=== PATIENT | male | born 1930 | race Caucasian/White ===

== ENCOUNTER 2016-05-20 19:38 | Inpatient (IN) | payer MEDICARE, BC ==
--- NOTE | ~2016-05-20 | CT134 ---
[facility] A Service of [facility] RADIOLOGY TEXT RESULTS PATIENT: ISIAH LOVETT LOCATION: C5B 557-01 : 32 UNIT #: [id number] AGE: [address]: Randolph Enciso MD SEX: M ORDER DR: [id number] [facility] [address] [place], [place] [address] [id number] MR#: [id number] Acc #: [id number] NAME: ISIAH LOVETT : 1930 SEX: M STUDY DATE/TIME: 05/22/2016 10:53 UNIT: [facility] ROOM: [facility] STUDY DESCRIPTION: CT Guide Attending Physician: Randolph Enciso M.D. Ordering Physician: Parvez Thomason M.D. Primary Care Physician: Kourtney Gary M.D. MEDICAL IMAGING REPORT This report is preliminary unless electronic signature is present EXAM CT guided paracentesis INDICATIONS Cirrhosis and ascites. The CT exam was performed with one or more of the following radiation dose reduction techniques: automatic exposure control, adjustment of mA and/or kV according to patient size, and iterative reconstruction. PROCEDURE The risks, benefits and alternatives to the procedure were explained to the patient and signed, informed consent was obtained. The patient was placed supine on the CT scanner gantry. Preliminary CT scan was performed through the region of interest and an appropriate site overlying the patient's right pericolic gutter collection was selected. Overlying skin was marked. The patient was prepped and draped in the usual sterile fashion. Time-out was performed as per protocol. Skin and subcutaneous tissues were anesthetized with buffered lidocaine, anesthesia needle was left in place. Repeat CT scan confirmed appropriate Trajectory of the needle. Subsequently advanced a Futurlinkeh catheter into the fluid with aspiration of serous material. A wire was advanced through the catheter and a 6-Kazakh pigtail catheter was advanced over wire and positioned within the fluid. Catheter was placed to suction drainage. There is evacuation of about 750 mL of serous material. A sample of this fluid will be sent to the lab as requested by the primary team. The patient did receive a total of 1 mg of Versed and 50 mcg fentanyl and continuous monitoring was provided throughout the procedure. IMPRESSION 1. Technically successful CT guided paracentesis as noted above. CT was STS. [facility] A Service of [facility] RADIOLOGY TEXT RESULTS PATIENT: ISIAH LOVETT LOCATION: C5B 557-01 : 32 UNIT #: [id number] AGE: [address]: Randolph Enciso MD SEX: M ORDER DR: used during the procedure and permanent images were saved. 2. CT-guided liver biopsy will be dictated separately. Dictated by... Karen Campbell M.D. THIS IS AN ELECTRONICALLY VERIFIED REPORT Karen Campbell M.D. at 05/23/2016 5:57 PM FELIX/abram TD: 05/23/2016 09:51 JOB #: [id number] MEDICAL IMAGING REPORT COPY
--- NOTE | ~2016-05-20 | US6 ---
[facility] A Service of [facility] RADIOLOGY TEXT RESULTS PATIENT: ISIAH LOVETT LOCATION: [facility] : 32 UNIT #: [id number] AGE: [address]: Randolph Enciso MD SEX: M ORDER DR: [id number] [facility] [address] [place], [place] [address] [id number] I MR#: [id number] Acc #: [id number] NAME: ISIAH LOVETT : 1930 SEX: M STUDY DATE/TIME: 05/23/2016 8:27 UNIT: [facility] ROOM: [facility] STUDY DESCRIPTION: US Abdominal Limited Attending Physician: Randolph Enciso M.D. Ordering Physician: Randolph Enciso M.D. Primary Care Physician: Kourtney Gary M.D. MEDICAL IMAGING REPORT This report is preliminary unless electronic signature is present EXAM Right upper quadrant abdominal ultrasound INDICATIONS Generalized abdominal swelling and pain for the past 3 weeks. PROCEDURE Craig-scale and Doppler imaging right upper quadrant of the abdomen COMPARISON 05/20/2016 FINDINGS Visualized portions of pancreas unremarkable. Liver measures 14 cm. No liver mass is seen on submitted images. Ascites in the abdomen. Right kidney measures 13.4 cm. There is a 3.8 cm cyst upper pole right kidney. Common duct measures 5 mm. Previous cholecystectomy. IMPRESSION 1. Ascites throughout the right upper quadrant. 2. Previous cholecystectomy, and a right upper pole renal cyst. Dictated by... Newton Abbasi M.D. THIS IS AN ELECTRONICALLY VERIFIED REPORT Newton Abbasi M.D. at 05/24/2016 7:08 AM SHIREEN/abram TD: 05/23/2016 10:26 JOB #: [id number] [facility] A Service of [facility] RADIOLOGY TEXT RESULTS PATIENT: ISIAH LOVETT LOCATION: [facility] 55 : 32 UNIT #: [id number] AGE: [address]: Randolph Enciso MD SEX: M ORDER DR: MEDICAL IMAGING REPORT COPY
--- NOTE | ~2016-05-20 | OR ---
Unit #: [id number] #: [id number] Patient: ISIAH LOVETT [id number] [address] [place], [place] [address] [id number] I MR#: [id number] NAME: ISIAH LOVETT ROOM: 557 Date of Procedure: 05/22/2016 Admission Date: 05/20/2016 Surgeon: Parvez Thomason M.D. : 1930 Attending Physician: Randolph Enciso M.D. Primary Care Physician: Kourtney Gary M.D. OPERATIVE REPORT PRIMARY CARE PHYSICIAN Kourtney Gary M.D. PREOPERATIVE DIAGNOSES The patient has presented with a history of ascites, status post large volume paracentesis and liver biopsy. Purpose of the endoscopy is to look for any evidence of indirect evidence of liver disease such as portal hypertensive gastropathy or esophageal varices. POSTOPERATIVE DIAGNOSES The patient had mild prepyloric antral gastritis as well as evidence of Parish esophagus. No biopsies were obtained. These have been done in the past. The patient did not have any changes of portal hypertensive gastropathy nor any esophageal varices. RECOMMENDATIONS The patient's liver biopsy was done earlier today. Results of the biopsy along with rest of the findings will be followed up in the office in next 4 to 6 weeks' time. SEDATION USED Procedural sedation. DESCRIPTION OF PROCEDURE Following detailed explanation of the potential risks and complications of an upper endoscopy, namely perforation, bleeding, complication related to sedation, the patient was brought to GI lab and laid in the left lateral decubitus position. Lubricated tip of the Olympus video upper endoscope was passed through bite block into the proximal esophagus under direct vision. The entire esophageal mucosa was examined. The patient was noted to have changes suggestive of Parish esophagus, tongues of columnar mucosa ascending above the gastroesophageal junction. The scope was then advanced into the gastric cavity. The latter was insufflated. Mucosa of the fundus, body, and antrum was examined and [id number] prepyloric antral erosive gastritis noted. No esophagitis or varices was noted and no gastric varices were present, also no changes suggestive of portal hypertensive gastropathy were seen. Pylorus was intubated with visualization of the normal duodenal bulb and second and third part of the duodenum. Upon withdrawal and retroflexion, incisura, cardia, and greater curve were examined and no additional findings noted. The scope was then withdrawn in the distal esophagus. The entire esophageal mucosa was examined all the way up to pharynx. No additional findings noted. The Unit #: [id number] #: [id number] Patient: ISIAH LOVETT patient tolerated the procedure without any postprocedure complications. Dictated by... Glen Johnson/elidia TD: 05/31/2016 20:33 JOB #: [id number] OPERATIVE REPORT X Parvez Thomason MD X PROCEDURE OPERATIVE NOTE
--- NOTE | ~2016-05-20 | CO ---
Unit #: [id number] #: [id number] Patient: ISIAH LOVETT [id number] [facility]. [place], [place] [address] [id number] I MR#: [id number] NAME: ISIAH LOVETT ROOM: 557 Age: 85 Sex: M Admission Date: 05/20/2016 : 1930 Attending Physician: Randolph Enciso M.D. Primary Care Physician: Kourtney Gary M.D. Consultation Date: 05/21/2016 CONSULTATION REPORT PRIMARY CARE PHYSICIAN Kourtney Gary M.D. REASON FOR CONSULTATION The patient with ascites along with anorexia, early satiety, and recurrent ascites. HISTORY OF PRESENT ILLNESS Mr. Lovett is a very pleasant 85-year-old white gentleman. The patient is admitted with anorexia, early satiety, and fullness in the stomach related to large ascites. It is noteworthy that he was seen here in January of last year with history of melena and upper GI bleed, requiring packed cell transfusion. He has had upper endoscopy and a colonoscopy towards that time in the past. This time, he presents with ascites along with abdominal distention from ascites, and also has history of cardiomyopathy and CHF. There is no history of overt GI blood loss this time. He has also history of bloating and according to his , he stopped eating much, and his activity level is also declined. PAST MEDICAL HISTORY Significant for history of cardiomyopathy with CHF; chronic atrial fibrillation; history of COPD; type 2 diabetes; hypertension; hyperlipidemia; benign prostatic hypertrophy; coronary artery disease, status post coronary bypass surgery. PAST SURGICAL HISTORY Included AICD placement and then subsequent removal due to infection, TURP for BPH, coronary artery bypass graft, bilateral herniorrhaphy, tonsillectomy. He has also had abdominal paracentesis in the past. SOCIAL HISTORY The patient never smoked. Drank alcohol. He used to drink alcohol, but only modestly more than 50 years ago. HOME MEDICATIONS Include Tylenol, Lasix, Ocuvite tablets, probiotic, Aldactone, Flomax, aspirin, Protonix, Mastisol, mononitrate. ALLERGIES He is allergic to codeine, Zantac, amoxicillin, and Plavix. FAMILY HISTORY None of colon, pancreatic cancer, or liver disease. Unit #: [id number] #: [id number] Patient: ISIAH LOVETT REVIEW OF SYSTEMS Significant for considerable anorexia and early satiety. There is no history of headache, seizures, chest pain, or syncope. No history of fever, chills, or rigors. There is history of some weight loss, but also the patient has gained an abdominal gas from ascites. No history of cough, expectoration, or hemoptysis. The patient does mention some shortness of breath. No history of dysuria, hematuria, or pyuria. No history of focal seizures or extremity weakness. No history of skin rash, aphthous ulcers in the mouth, or reactive arthritis. PHYSICAL EXAMINATION GENERAL: He is alert and oriented, and appears rundown. VITAL SIGNS: Stable with a temperature of 97.8, pulse is 85 per minute and regular, respiratory rate is 18, and blood pressure is 110/67. He weighs 180 pounds. His baseline weight has varied between 176 to 195 pounds in the past. HEENT: He has mild pallor. Grade 1 to 2 pitting edema. There is no icterus or lymphadenopathy. CARDIOVASCULAR: Reveals normal. LUNGS: On auscultation, lungs reveal bilateral diminished air entry especially at the lung bases. ABDOMEN: The patient does appear to be malnourished, poor muscle with muscle wasting. Examination of the abdomen reveals ascites. There is no area of localized tenderness, rigidity, rebound, or guarding. Liver spleen are not palpable. Bowel sounds normal. DIAGNOSTIC STUDIES LABORATORY RESULTS: Shows normal platelets and albumin level of 3.7. It is also noteworthy that the patient does not have any thrombocytopenia. Hemoglobin is 12 and platelet count is 148. CLINICAL IMPRESSION Although, the patient has ascites and albumin gradient of 1.3. He still seems to have increased albumin in the ascitic fluid. His cytologies in the past have been negative and BNP is low. The etiology of ascites, therefore unclear. I will suggest doing a repeat large volume paracentesis and send ascitic fluid for albumin cell count and cytology again. In addition, we suggest to perform percutaneous ultrasound-guided liver biopsy and medical liver biopsy at the same time to answer the question in relation to cirrhosis. Also obtain PT/INR in the morning before the biopsies done. We will also obtain a consent for an upper endoscopy for indirect evidence of liver disease, such as portal hypertensive gastropathy or varices. The patient in the meantime was advised to take high-protein 2 g sodium diet and Glucerna supplements. Detailed discussion was held with the family regarding the fact that the exact diagnosis and etiology of ascites still uncertain. Thank you very much for asking me to see this very pleasant gentleman. I appreciate the consult. Dictated byGlen Nagel/elidia TD: 05/31/2016 21:17 JOB #: [id number] Unit #: [id number] #: [id number] Patient: ISIAH LOVETT CONSULTATION REPORT X Parvez Thomason MD CONSULTATION REPORT
--- NOTE | ~2016-05-20 | CO ---
Unit #: [id number] #: [id number] Patient: ISIAH LOVETT [id number] [facility]. [place], [place] [address] [id number] I MR#: [id number] NAME: ISIAH LOVETT ROOM: 557 Age: 85 Sex: M Admission Date: 05/20/2016 : 1930 Attending Physician: Randolph Enciso M.D. Primary Care Physician: Kourtney Gary M.D. CONSULTATION REPORT The patient of Dr. Enciso. REASON FOR CONSULTATION Increased creatinine. HISTORY OF PRESENT ILLNESS Mr. Lovett is an 85-year-old male who presented to the hospital with complaint of abdominal swelling. It has actually been going on for a few months of worsening degree. Severity has gotten so bad as to prevent him from eating more than a few bites before he feels bloated and swollen and unable to eat anymore. He has not had vomiting. He has thought to have liver disease. He has had recent 1 L paracentesis without significant improvement. He is on furosemide 40 mg daily and spironolactone 25 mg daily. He is noted to have a creatinine of 1.3. Renal evaluation is requested. He has previously had a history of chronic kidney disease and had an episode of acute kidney injury in 02/2012 with creatinine reaching 2.4 before recovering to approximately 1.4 in 02/2012; it was also 1.4 in 06/2014, 01/2016, and yesterday. He has had a history of bladder outlet issues and has seen Dr. Casillas in the past that was thought secondary to benign prostatic hypertrophy. He has not had increased symptoms of that of late. He denies nonsteroidal use. He has not had dysuria or gross hematuria. He has not had sensation of flank pain. He is not aware of any prior history of stones. PAST MEDICAL HISTORY Notable for congestive heart failure and coronary artery disease; he has not had congestive heart failure symptoms in a long while and in fact breathes more comfortably lying and sitting currently. He has a history of diabetes and hypertension. He has the above-noted history of benign prostatic hypertrophy. He has a recent diagnosis of cirrhosis. SYSTEM REVIEW Five component system review is negative except as noted above that includes no syncope, positive for shortness of breath with exertion, negative for purulent sputum, negative for chest pain, negative for orthopnea, negative for vomiting, but positive for early satiety, negative for sensation of incomplete bladder emptying, negative for bloody bowel movements. SOCIAL HISTORY Includes distant past cigarette smoking history. FAMILY HISTORY Positive for lung cancer. Negative for renal disease. Unit #: [id number] #: [id number] Patient: ISIAH LOVETT PHYSICAL EXAMINATION GENERAL: Reveals a pleasant, confused, elderly male, in no distress at rest, but distinct upon trying to sit, lies back at 20 degrees head elevation with comfort. VITAL SIGNS: Blood pressure is 112/64, heart rate 85, and respirations 24. HEENT: Conjunctivae are pink. There is no bloody nasal discharge. Oral mucous membranes are reasonably moist. NECK: Reveals no thyromegaly. Cervical or supraclavicular adenopathy is not notable. SKIN: Warm and dry with marginal turgor. LUNGS: Reveal moderate air movement. No rales. HEART: Reveals no rub. ABDOMEN: Protuberant with fluid wave. It is nontender. : Includes no CVA tenderness. Bladder distention is not noted, but the exam is difficult for percussion to the presence of probable ascites. EXTREMITIES: Reveal trace pretibial edema. DIAGNOSTIC STUDIES LABORATORY RESULTS: Include a BUN of 26, creatinine 1.3, potassium 4.2, CO2 of 27, calcium 10, and albumin 3.7. White count 6900, hemoglobin 11.6, and platelet count 144,000. Urine yesterday showed negative leukocyte esterase, negative nitrite, negative protein, and negative blood. ASSESSMENT 1. Chronic kidney disease. Renal function is near the lowest level obtained after the prior episode of acute kidney injury in 2011. Uncertain whether there might be some component of reversibility of PPI; we will change to H2 rae and check urine eosinophils. There is no evidence of renal inflammation. As creatinine is stable compared to prior, it will not intervene with any imaging at this point, but we will reconsider the increased creatinine. We would avoid ORLANDO inhibitors in the setting of cirrhosis with portal hypertension. 2. Cirrhosis with portal hypertension. We will discontinue ORLANDO inhibitor. We will increase spironolactone dose and administer along with once daily p.o. furosemide. We will check random urine, sodium, and potassium. We will restrict dietary sodium. 3. Coronary artery disease with history of congestive heart failure. No decompensation at present. No active angina. 4. History of benign prostatic hypertrophy with bladder outlet problems, previously treated by Dr. Casillas. 5. History of diabetes mellitus. 6. History of hypertension. PLAN We will discontinue Protonix, Zestril, and IV fluids. We will start to have dietary sodium restriction. We will add Pepcid. We will check urine eosinophil stain. We will increase spironolactone to 100 mg daily. We will check random urine, sodium, and potassium, re-evaluate with labs and exam in the a.m. Thanks for inviting me to see Mr. Lovett. Dictated by... Isacc Rosado M.D. Unit #: [id number] #: [id number] Patient: ISIAH LOVETT REL/modl TD: 05/22/2016 15:40 JOB #: [id number] CONSULTATION REPORT X Isacc Rosado MD X CONSULTATION REPORT
--- NOTE | ~2016-05-20 | XA60 ---
[facility] A Service of [facility] RADIOLOGY TEXT RESULTS PATIENT: ISIAH LOVETT LOCATION: [facility] 55- : 32 UNIT #: [id number] AGE: [address]: Randolph Enciso MD SEX: M ORDER DR: [id number] [place], [place] [address] [id number] I MR#: [id number] Acc #: [id number] NAME: ISIAH LOVETT : 1930 SEX: M STUDY DATE/TIME: 05/22/2016 10:53 UNIT: [facility] ROOM: [facility] STUDY DESCRIPTION: XA BX Perc Liver Attending Physician: Randolph Enciso M.D. Ordering Physician: Parvez Thomason M.D. Primary Care Physician: Kourtney Gary M.D. MEDICAL IMAGING REPORT This report is preliminary unless electronic signature is present EXAM XA BX perc liver INDICATION Cirrhosis and ascites. FINDINGS Please see CT guide for results. Dictated by... Karen Campbell M.D. THIS IS AN ELECTRONICALLY VERIFIED REPORT Karen Campbell M.D. at 05/23/2016 5:57 PM AFF/ana TD: 05/23/2016 09:56 JOB #: [id number] MEDICAL IMAGING REPORT COPY
--- NOTE | ~2016-05-20 | CO ---
Unit #: [id number] #: [id number] Patient: ISIAH LOVETT [id number] [place], [place] [address] [id number] I MR#: [id number] NAME: ISIAH LOVETT ROOM: 557 Age: 85 Sex: M Admission Date: 05/20/2016 : 1930 Attending Physician: Randolph Enciso M.D. Primary Care Physician: Kourtney Gary M.D. CONSULTATION REPORT ADDENDUM ASSESSMENT 1. Permanent atrial fibrillation. 2. Stable angina. 3. Status post coronary artery bypass grafting and percutaneous coronary intervention and stent. 4. History of myocardial infarction. 5. Ascites. 6. Weight loss. 7. Change in bowel habits. PLAN We will need to rate control his atrial fibrillation. His creatinine is 1.3. We will add a low-dose ORLANDO inhibitor with his low ejection fraction of 40% to 45% and history of coronary artery disease. Also, put him on Coreg 3.125 b.i.d. Check a chest x-ray PA and lateral today and add a BMP to today's labs and a fasting lipid panel. We will obtain records from Dr. Duran's office for Cardiology rule out constrictive pericarditis with a cardiac MRI. We will continue his Lasix and Aldactone and ask Dr. Thomason about the diagnosis and cause of ascites and weight loss. He will possibly need a GI workup. This could be drug related from polypharmacy. In reviewing an old EKG from March 13, 2016, it showed possible atrial fibrillation with occasional ectopic ventricular beats and a right bundle branch block with right axis deviation. Thank you for this consultation. We will continue to follow him through hospitalization. Dictated by... Kelsea Patel APRN for Glen Peguero TD: 05/23/2016 17:18 JOB #: [id number] Unit #: [id number] #: [id number] Patient: ISIAH LOVETT CONSULTATION REPORT X X CONSULTATION REPORT
--- NOTE | ~2016-05-20 | EKG ---
PATIENT: ISIAH LOVETT UNIT #: [id number] Ventricular Rate: 91 BPM Atrial Rate: 88 BPM QRS Duration: 122 ms Q-T Interval: 428 ms QTC Calculation(Bezet): 526 ms Calculated R Carmel: 47 degrees Calculated T Carmel: 46 degrees Diagnosis Line: Atrial fibrillation with occasional PVC's Diagnosis Line: Abnormal ECG Diagnosis Line: When compared with ECG of 14-FEB-2016 12:02, Diagnosis Line: Nonspecific T wave abnormality, improved in Diagnosis Line: Anterior leads Diagnosis Line: Confirmed by NATALY GREENE MD ([id number]) on Diagnosis Line: 05/21/2016 10:47:56 PM INTERPRETING MD: BERRY
--- NOTE | ~2016-05-20 | HP ---
Unit #: [id number] #: [id number] Patient: CASIMIRO LOVETT [id number] [address] [place], [place] [address] [id number] I MR#: [id number] NAME: CASIMIRO LOVETT ROOM: 557 Age: 85 Sex: M Admission Date: 05/20/2016 : 1930 Attending Physician: Randolph Enciso M.D. Primary Care Physician: Kourtney Gary M.D. HISTORY AND PHYSICAL ADMISSION DIAGNOSES 1. It looks decompensated liver cirrhosis with ascites, questionable TOUSSAINT. 2. AFib with episode of AFib with RVR with chronic atrial fibrillation. 3. History of coronary artery disease. 4. History of cardiomyopathy and CHF status post AICD placement and then removal secondary to infection. 5. History of diabetes. 6. Hypertension. 7. history of BPH. 8. History of GI bleed. 9. Questionable CKD. HISTORY OF PRESENT ILLNESS Mr. Casimiro Lovett is an 85-year-old gentleman, patient of Dr. Kourtney Gary, who was brought to the emergency room secondary to abdominal bloating and distension. It looks like the patient had the paracentesis done about a week ago or so. He complains of increasing abdominal bloating and shortness of air and dyspnea with exertion. In the ER, he was noted with episode of AFib with RVR. He was given a dose of Cardizem converted easily to sinus rhythm. He denies any active chest pain. He denies any headache, dizziness, fever, chills, nausea, vomiting or diarrhea. He has noticed his increasing abdominal distension and bloating for the last two or three weeks which, again, progressively was getting worse. His GI doctor is Dr. Parvez Thomason. So, a 12-point review of systems on this patient basically negative except as above. PAST MEDICAL HISTORY History of coronary artery disease status post CABG, history of cardiomyopathy and CHF, history of chronic atrial fibrillation, history of COPD, diabetes, hypertension, dyslipidemia and BPH. PAST SURGICAL HISTORY CABG, AICD placement and then removal secondary to infection, TURP for BPH, bilateral hernia repair, tonsillectomy, multiple EGDs and abdominal paracentesis not to long ago. SOCIAL HISTORY The patient denies any history of tobacco, alcohol or illicit drug use. He was never a heavy drinker and had not drank since about 50 plus years ago. FAMILY HISTORY Unremarkable. Unit #: [id number] #: [id number] Patient: CASIMIRO LOVETT ALLERGIES Zantac, codeine, amoxicillin and Plavix. HOME MEDICATIONS 1. Tylenol. 2. Lasix. 3. Ocuvite tablets. 4. Probiotic. 5. Aldactone. 6. Flomax. 7. Restoril. 8. Protonix. 9. Isosorbide mononitrate. PHYSICAL EXAMINATION GENERAL APPEARANCE: The patient is an 85-year-old gentleman not in acute distress with some icteric sclerae and a little yellow discoloration on the skin. VITAL SIGNS: Blood pressure 120/62. Heart rate 72. Respirations 22. Temperature 97.8. HEENT: Head is atraumatic. Pupils are equal, round and reactive to light. Extraocular muscles intact. Oropharynx clear. NECK: Supple. No mass. No JVD. No bruits. CHEST: Diminished bilaterally. CARDIOVASCULAR: S1, S2. No murmurs. ABDOMEN: Ascitic. Mild fluid waves present. Bowel sounds are distant and diminished. No significant hepatosplenomegaly. EXTREMITIES: Lower extremities without any cyanosis, clubbing or edema. NEUROLOGIC: Patient grossly intact without any focal deficit. DIAGNOSTIC STUDIES LABORATORY: PT, INR and PTT 13.2, 1.2 and 29.3. BUN and creatinine 29 and 1.3. Hemoglobin and hematocrit 11.6 and 36.6, platelets 144, white count 6.9. IMAGING: CT abdomen and pelvis which was done in the ER shows liver cirrhosis without hepatomegaly and abdominal ascites, questionable acute cholecystitis. dependent edema over the pubic area, diverticulosis, increased small bilateral pleural effusions, cardiomegaly with extensive coronary artery disease, multiple bilateral renal lesions which represent simple cysts, pelvic varices. Please disregard acute cholecystitis because the patient had the prior cholecystectomy it looks like. ASSESSMENT AND PLAN 1. Liver cirrhosis with ascites, questionable TOUSSAINT. We will get the hepatis panel, get the right upper quadrant ultrasound, ask Interventional Radiology for abdominal paracentesis and follow up Dr. Thomason's evaluation. 2. Episode of AFib with chronic AFib converted with Cardizem. Cardiology is following. Control rate control. Not a candidate for anticoagulation secondary to previous GI bleed. 3. History of coronary artery disease status post CABG. 4. History of cardiomyopathy and CHF status post AICD and then removal secondary to infection. 5. Diabetes, stable. 6. Hypertension, stable. 7. BPH status post TURP. Unit #: [id number] #: [id number] Patient: CASIMIRO LOVETT 8. Questionable CKD. Follow chemistry closely. May need active diuresis. Therefore, his kidney function may further deteriorate. We will ask Dr. Santiago to see since he is familiar with the patient. He saw him the last time in 2011. Dictated by Glen Arellano/maricel TD: 05/21/2016 16:19 JOB #: [id number] HISTORY AND PHYSICAL X Randolph Enciso MD HISTORY AND PHYSICAL
--- NOTE | ~2016-05-20 | DS ---
Unit #: [id number] #: [id number] Patient: ISIAH LOVETT [id number] [address] [address] [id number] I MR#: [id number] NAME: ISIAH LOVETT ROOM: 55 Age: 85 Sex: M Admission Date: 05/20/2016 : 1930 Discharge Date: 05/23/2016 Attending Physician: Randolph Enciso M.D. Primary Care Physician: Kourtney Gary M.D. DISCHARGE SUMMARY FINAL DIAGNOSES 1. Ascites. 2. Possible cirrhosis. 3. Status post liver biopsy, results are pending. 4. Permanent atrial fibrillation. 5. Coronary artery disease, status post percutaneous coronary intervention and stent and coronary artery bypass graft. 6. Ejection fraction of 40% to 45%, mild to moderate aortic stenosis/aortic regurgitation, and moderate to severe tricuspid regurgitation. 7. Status post esophagogastroduodenoscopy which shows gastritis, Parish esophagus. 8. Chronic kidney disease, stage 3. 9. Cellulitis of lower abdominal wall which is already resolving. 10. Diabetes mellitus type 2. 11. Hypertension. DISCHARGE MEDICATIONS 1. Keflex 500 mg p.o. t.i.d. for five more days. 2. Furosemide 40 mg daily. 3. Coreg 3.125 mg twice a day. 4. Flomax 0.4 mg at bedtime. 5. Imdur ER 60 mg daily. 6. Protonix 40 mg b.i.d. 7. Aldactone 100 mg daily. 8. Lisinopril 2.5 mg p.o. daily. CONSULTATION DURING HOSPITALIZATION 1. Dr. Rosado and Dr. Ortiz - Renal Services. 2. Dr. Delvalle - Cardiology Services. LAB WORKUP ON DISCHARGE BMP shows sodium 139, potassium 4.0, chloride 101, BUN 31, creatinine 1.4, calcium 10.0. CBC shows WBC 5.8, hemoglobin 12.0, hematocrit 38.3 and platelet count of 148. TSH is 1.70. BNP which was done on 05/21/16 was 357. Urinalysis was normal. Unit #: [id number] #: [id number] Patient: ISIAH LOVETT Troponin less than 0.05. Lactic acid 1.2. Gastric emptying study showed slightly delayed gastric emptying. Ultrasound of abdomen which shows ascites throughout the right upper quadrant, previous cholecystectomy and right upper pole renal cyst. CT scan of abdomen and pelvis - increased moderate abdominal ascites. There is cirrhosis without splenomegaly. HOSPITAL COURSE Mr. Lovett is an 85-year-old male who was admitted to hospital with ascites. Patient had paracentesis done a week ago or so. Complained of increased abdominal bloating and shortness of air and dyspnea with exertion. Patient was noted with episode of atrial fibrillation with rapid ventricular rate. He was given a dose of Cardizem, converted easily to sinus rhythm. He denied any active chest pain. Patient most likely has TOUSSAINT. Dr. Parvez Thomason was consulted. Patient had EGD done which did show esophagitis. Biopsies have been done. Patient is not a candidate for anticoagulation therapy secondary to previous GI bleed. Patient is doing better. Patient did develop lower abdominal cellulitis, started on Rocephin. He is doing much better. We are going to change that to Keflex. Discussed with patient's at length. Patient is being discharged home to follow up with Dr. Parvez Thomason on June 01 at 12:30 p.m. Patient's vital signs on discharge - blood pressure is 110/63, respiratory rate 21, pulse is 59, temperature 97.7. CHEST has decreased air entry. CVS - S1, S2 positive. ABDOMEN is soft. DISCHARGE INSTRUCTIONS 1. Patient is being discharged home in stable condition. 2. Follow up with primary care provider in one week. 3. [facility] to eval and treat at home for nursing care and rehab and physical therapy. 4. Follow up cardiology, Dr. Duran, in three to four weeks. 5. Prescription for Keflex, carvedilol, lisinopril and Aldactone is being written. Plan of care has been discussed with patient's at length. Dictated by... Glen Webster TD: 05/26/2016 07:31 JOB #: [id number] Unit #: [id number] #: [id number] Patient: ISIAH LOVETT DISCHARGE SUMMARY X Lenka Arredondo MD X DISCHARGE SUMMARY
--- NOTE | ~2016-05-20 | CT134 ---
[facility] A Service of [facility] & [facility] RADIOLOGY TEXT RESULTS PATIENT: ISIAH LOVETT LOCATION: [facility] 557-01 : 32 UNIT #: [id number] AGE: [address]: Randolph Enciso MD SEX: M ORDER DR: [id number] [facility] [address] [place], [place] [address] [id number] I MR#: [id number] Acc #: [id number] NAME: ISIAH LOVETT : 1930 SEX: M STUDY DATE/TIME: 05/22/2016 10:53 UNIT: [facility] ROOM: [facility] STUDY DESCRIPTION: CT Guide Attending Physician: Randolph Enciso M.D. Ordering Physician: Parvez Thomason M.D. Primary Care Physician: Kourtney Gary M.D. MEDICAL IMAGING REPORT This report is preliminary unless electronic signature is present EXAM CT-guided liver biopsy. This CT exam was performed with one or more of the following radiation dose reduction techniques: automatic exposure control, adjustment of mA and/or kV according to patient size, and iterative reconstruction. INDICATION Cirrhosis and ascites. PROCEDURE The risks, benefits, and alternatives to the procedure were explained to the patient and signed, informed consent was obtained. He was placed supine on the CT scanner gantry, preliminary CT scan was performed through the region of interest. An appropriate site overlying the patient's liver was selected. The overlying skin was marked. Patient was prepped and draped in the usual sterile fashion. Time-out was performed as per protocol. Skin and subcutaneous tissues were anesthetized with buffered lidocaine. Anesthesia needle was left in place. Repeat CT scan confirmed appropriate trajectory of the needle. I subsequently exchanged for a 17-gauge coaxial needle which was advanced into the liver. Repeat CT scan confirmed appropriate position of the needle and at this point two 2-cm core samples were obtained using an 18-gauge BioPince biopsy gun. Needle was then removed and manual pressure was applied until hemostasis was obtained. Patient tolerated the procedure well and there were no immediate complications. The patient received a total of 1 mg of Versed and 50 mcg of fentanyl and continuous monitoring was provided throughout the procedure. Please note patient's CT guided paracentesis will be dictated separately. IMPRESSION Technically successful CT-guided liver biopsy as noted above. CT was used during the procedure and permanent images were saved. [facility] A Service of [facility] RADIOLOGY TEXT RESULTS PATIENT: ISIAH LOVETT LOCATION: [facility] 557-01 : 32 UNIT #: [id number] AGE: [address]: Randolph Enciso MD SEX: M ORDER DR: Dictated by... Karen Campbell M.D. THIS IS AN ELECTRONICALLY VERIFIED REPORT Karen Campbell M.D. at 05/23/2016 5:57 PM FELIX/ana TD: 05/23/2016 09:45 JOB #: [id number] MEDICAL IMAGING REPORT COPY
--- NOTE | ~2016-05-20 | CT4 ---
[facility] A Service of [facility] & [facility] RADIOLOGY TEXT RESULTS PATIENT: ISIAH LOVETT LOCATION: [facility] 557-01 : 32 UNIT #: [id number] AGE: [address]: Randolph Enciso MD SEX: M ORDER DR: [id number] [facility] [address] [place], [place] [address] [id number] I MR#: [id number] Acc #: [id number] NAME: ISIAH LOVETT : 1930 SEX: M STUDY DATE/TIME: 05/20/2016 21:45 UNIT: [facility] ROOM: [facility] STUDY DESCRIPTION: CT Abd and Pelv Wo Cont Attending Physician: Randolph Enciso M.D. Ordering Physician: Lennie Yates M.D. Primary Care Physician: Kourtney Gary M.D. MEDICAL IMAGING REPORT This report is preliminary unless electronic signature is present EXAM CT abdomen and pelvis without IV contrast. COMPARISON STUDIES 02/14/2016 and 08/06/13. INDICATIONS 85-year-old male with intermittent diffuse abdominal pain for 2 months, returning today. Diffuse abdominal distension and weakness for 2 months as well. TECHNIQUE This CT exam was performed with one or more of the following radiation dose reduction techniques: automatic exposure control, adjustment of mA and/or kV according to patient size, and iterative reconstruction. FINDINGS Axial CT imaging of the abdomen and pelvis was performed without IV contrast. Lack of IV contrast limits evaluation of adenopathy, vasculature and viscera. Small collateral veins are noted within the subcutaneous fat overlying the anterior right abdominal wall and chest wall. There are mild right lower quadrant epigastric varices overlying the pelvis. There is a small fat-containing right inguinal hernia. There is diffuse skin thickening over the pubis bilaterally. There is also associated subcutaneous edema which is diffuse but more prominent over the pubis. Subcutaneous edema and skin thickening have worsened since February 13, 2016. There is a small umbilical hernia containing ascitic fluid. There is a small moderate amount of loculated appearing ascites in the abdomen and pelvis. Urinary bladder is unremarkable. Minimal prostatic calcifications, nonspecific finding perhaps reflecting STS. [facility] A Service of [facility] & [facility] RADIOLOGY TEXT RESULTS PATIENT: ISIAH LOVETT LOCATION: [facility] 557-01 : 32 UNIT #: [id number] AGE: [address]: Randolph Enciso MD SEX: M ORDER DR: remote prostatitis. There is dilatation of the internal iliac veins within the pelvis, not significantly changed from February 14, 2016. Moderate to severe osteoarthritis at the left hip. Multilevel degenerative facet disease of the lumbar spine. Multilevel degenerative disc disease and endplate change of the visualized thoracic spine. Degenerative disc changes at L4-L5 where there is also small posterior disc protrusion. There is minimal grade 1 degenerative anterolisthesis of L5 on S1. 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 Slightly increased small bilateral pleural effusions. There has been prior median sternotomy, likely reflecting prior CABG. Dense coronary artery calcifications are noted. There is also calcification at the aortic valve. Calcified subcarinal lymph node. Calcified granulomas in the right lower lobe. Minimal compressive atelectasis in the lung bases. Grossly stable findings of cirrhosis. Calcified granulomas within the liver and spleen. There is normal splenic size. No evidence of bowel obstruction. There is marked sigmoid diverticulosis without evidence of acute diverticulitis. There has been prior cholecystectomy. No evidence of acute appendicitis. The appendiceal tip is obscured by ascitic fluid, however. Adjacent to the inferior pole of the right kidney, there is a multilobular structure measuring approximately 6.7 cm craniocaudal approximately 6.9 cm AP by as much as 6.1 cm transverse. This is grossly stable from February 14, 2016 and has not changed appreciably in size from August 06, 2013. This finding did not demonstrate appreciable postcontrast enhancement in 2013 and is consistent with a large multilobular exophytic proteinaceous cyst of the right kidney. Separate simple cyst in the mid pole of the right kidney measuring up to 3.8 cm. There is also a parapelvic cyst of the right kidney measuring 3.4 cm. Separate tiny cyst versus angiomyolipoma inferior pole of the right kidney measures up to 1.4 cm. At the mid pole left kidney, there is an angiomyolipoma versus a cyst measuring 1.8 cm in the superior aspect. Separate simple cyst superior pole of the left kidney measuring 1.4 cm with another tiny low-density lesion superior pole of the left kidney which is too small to characterize measuring up to 6 mm, not definitely seen previously. Parapelvic cyst in the left kidney measuring up to approximate 4 cm. Indeterminate density exophytic lesion extending from the inferior pole of the left kidney measured 1.5 cm. This is in location of the previously noted simple cyst and may represent hemorrhagic conversion. Simple exophytic cyst seen medially at the inferior pole left kidney. Hyperdense lesion exophytically from the inferior lower pole of the kidney measuring 1.9 cm with a separate hyperdense 6 mm inferior pole lesion which is also a exophytic. The 6 mm lesion is too small to characterize and was likely present in 2013 although appearing now more dense. The other larger hyperdense lesion was previously evaluated with contrast and did not demonstrate appreciable postcontrast enhancement most consistent with a STS. [facility] A Service of [facility] RADIOLOGY TEXT RESULTS PATIENT: ISIAH LOVETT LOCATION: [facility] 557-01 : 32 UNIT #: [id number] AGE: [address]: Randolph Enciso MD SEX: M ORDER DR: hemorrhagic cyst, currently measuring up to 1.9 cm. No hydronephrosis or hydroureter. No evidence of ureteral calculus. There are pelvic phleboliths. No pneumoperitoneum. Urinary bladder is unremarkable. There is diffuse calcification of the abdominal aorta with extension to the iliac arteries. There are also calcification at the origin of the celiac, superior mesenteric and bilateral renal arteries. Adrenal glands are within normal limits. Pancreas is unremarkable. There is a small splenule. There are bilateral pelvic varices, right greater than left. No evidence of adenopathy. IMPRESSION 1. Compared with February 14, 2016, there is increased moderate abdominal ascites much of which appears loculated. There is cirrhosis without splenomegaly. 2. Prior cholecystectomy. 3. Cholelithiasis without acute cholecystitis. 4. Pelvic varices as well as right-sided small epigastric varices in the right lower anterior abdominal wall overlying the pelvis. 5. New skin thickening and subcutaneous edema overlying the pubis, likely dependent edema. Clinical correlation to exclude signs of cellulitis recommended. 6. Severe diverticulosis. No evidence of acute diverticulitis. 7. Severe osteoarthritis of the left hip. Small posterior disk protrusion L4-L5. 8. Increased small bilateral pleural effusions. Cardiomegaly with extensive coronary artery disease and atherosclerotic disease in the abdomen and pelvis as described. Calcification of the aortic valve. 9. Multiple bilateral renal lesions some of which represent simple cysts, and some of which appear to represent proteinaceous or hemorrhagic cysts as described in the body of the report. Dictated by... Vitor Quigley M.D. THIS IS AN ELECTRONICALLY VERIFIED REPORT Vitor Quigley M.D. at 05/24/2016 7:26 AM TASIA/archie TD: 05/21/2016 02:05 JOB #: [id number] MEDICAL IMAGING REPORT COPY
--- NOTE | ~2016-05-20 | CR63 ---
[facility] A Service of [facility] & [facility] RADIOLOGY TEXT RESULTS PATIENT: ISIAH LOVETT LOCATION: [place] [address] : 32 UNIT #: [id number] AGE: [address]: Randolph Enciso MD SEX: M ORDER DR: [id number] [facility] [address] [place], [place] [address] [id number] I MR#: [id number] Acc #: [id number] NAME: ISIAH LOVETT : 1930 SEX: M STUDY DATE/TIME: 05/21/2016 13:33 UNIT: [facility] ROOM: [facility] STUDY DESCRIPTION: CR Chest 2 View Attending Physician: Randolph Enciso M.D. Ordering Physician: Randolph Enciso M.D. Primary Care Physician: Kourtney Gary M.D. MEDICAL IMAGING REPORT This report is preliminary unless electronic signature is present EXAM Chest x-ray 05/21/2016. HISTORY 85-year-old male hospital inpatient with atrial fibrillation with rapid ventricular response. Chest pain. TECHNIQUE AP and lateral upright chest series. FINDINGS Moderately severe cardiomegaly, stable since 09/23/2015. Postop changes CABG. Small bilateral pleural effusions with bibasilar pulmonary atelectasis. Mid- and upper lungs appear clear. IMPRESSION 1. Stable cardiomegaly. CABG. 2. Bilateral pleural effusions and bibasilar pulmonary atelectasis. Dictated by... Juvenal Goldberg M.D. THIS IS AN ELECTRONICALLY VERIFIED REPORT Juvenal Goldberg M.D. at 05/22/2016 8:40 AM JUSTOW/kameron TD: 05/21/2016 20:06 JOB #: [id number] MEDICAL IMAGING REPORT [facility] A Service of [facility] & [facility] RADIOLOGY TEXT RESULTS PATIENT: ISIAH LOVETT LOCATION: [place] [address] : 32 UNIT #: [id number] AGE: [address]: Randolph Enciso MD SEX: M ORDER DR: COPY
[~2016-05-20 19:38] MED LIST: ACETAMINOPHEN PO; ACETAMINOPHEN650 M2 PO; ACIPHEX20 MG; ALDACTONE PO; ALDACTONE25 MG PO; ARTHRITIS PAIN650 M1 PO; ARTHRITIS PAIN650 M3 PO; ASPIRIN EC81 M1 PO; ASPIRIN PO; ASPIRIN81 M1 PO; BENADRYL25 MG PO; BETAPACE; CEPHALEXIN250 M1 PO; COREG PO; COREG3.125 MG PO; COUMADIN PO; COUMADIN5 MG PO; COUMADIN6 MG PO; DIOVAN PO; FLOMAX0.4 M1 PO; FUROSEMIDE40 MG PO; FUROSEMIDE80 MG PO; GAS-X125 MG PO; GLUCOSAMINE CHO PO; GLUCOTROL PO; HYALURONIC ACID PO; IMDUR PO; IMDUR-ER30 M1 PO; ISOSORBIDE MONO60 M1 PO; K-DUR20 ME1 PO; KEFLEX500 MG PO; KLOR-CON PO; LASIX PO; METOLAZONE2.5 MG PO; MILK OF MAGNESIA PO; MSM PO; NIACIN500 M2 PO; NORVASC; OCUVITE TABLET1 TA1 PO; OMEPRAZOLE20 M2 PO; PANTOPRAZOLE SO40 MG; POTASSIUM CHLO10 MEQ PO; PRILOSEC20 M1 PO; PRINCIPEN500 M1 PO; PROBIOTIC1 EAC1 PO; PROTONIX PO; RESTORIL15 MG PO; SPIRIVA18 MCG; TEMAZEPAM PO; TIKOSYN250 MCG; TIKOSYN250 MCG PO; VITAMIN B COMPLEX PO; VITAMIN D-32000 UNI1 PO; ZEBETA5 MG PO; ZOCOR; [UNRECOGNIZED DRUG - OTHER]; [UNRECOGNIZED DRUG - OTHER]
[2016-05-20 19:53] LABS: BASOPHIL# 0.1 X10e3 (0-0.3); BASOPHIL% 0.6 % (0-2.5); EOSINOPHIL% 0.3 % (0.0-7.0); HEMATOCRIT 36.4 % (38.0-50.0); HEMOGLOBIN 11.5 gm/dL (13.0-16.0); LYMPHOCYTE# 0.5 X10e3 (1.0-3.5); LYMPHOCYTE% 5.5 % (17.0-45.0); MEAN CELL VOLUME 79.8 FL (83-96); MEAN CORPUSCULAR HEMOGLOBIN 25.3 PG (28-34); MEAN CORPUSCULAR HGB CONC 31.7 g/dL (30-36); MEAN PLATELET VOLUME 7.5 FL (6.5-11.5); MONOCYTE# 0.7 X10e3 (0-1.0); MONOCYTE% 8.7 % (3.0-12.0); NEUTROPHIL# 7.2 X10e3 (1.5-7.1); NEUTROPHIL% 84.9 % (40-75); PLATELET COUNT 157 X10e3 (140-420); RED BLOOD COUNT 4.56 X10e (3.90-5.60); WHITE BLOOD COUNT 8.5 X10e3 (4.0-10.5)
[2016-05-20 19:57] LABS: DIFF IND NO
[2016-05-20 20:07] LABS: INR 1.2; PARTIAL THROMBOPLASTIN TIME 29.3 SECONDS (23.5-31.3); PROTHROMBIN TIME (PATIENT) 13.2 SECONDS (9.6-11.5)
[2016-05-20 20:11] LABS: ALBUMIN SERUM 3.7 g/dL (3.5-5.0); BILIRUBIN, DIRECT 0.8 mg/dL (0.0-0.2); BILIRUBIN,INDIRECT 1.8 mg/dL (0.0-0.9); BILIRUBIN,TOTAL 2.6 mg/dL (0.2-2.0); BUN/CREATININE RATIO 22.14; CALCIUM SERUM 9.7 mg/dL (8.4-10.2); CREATININE SERUM 1.4 mg/dL (0.6-1.4); GLOM FILT RATE Estimated 51.4 mL/min (>60); POTASSIUM 3.9 mmol/L (3.5-5.1); PROTEIN TOTAL SERUM 7.3 g/dL (6.0-8.3)
[2016-05-20 20:59] LABS: POC - CKMB <1.0 ng/mL (0.0-7.9); POC - TROPONIN <0.05 ng/mL (<=0.05)
[2016-05-20 21:05] LABS: URINE SOURCE CLEAN CATCH
[2016-05-20 21:06] LABS: POC - CKMB <1.0 ng/mL (0.0-7.9); POC - TROPONIN <0.05 ng/mL (<=0.05)
[2016-05-20 21:16] LABS: URINE APPEARANCE CLEAR; URINE BILIRUBIN NEG (NEG); URINE BLOOD NEG (NEG); URINE COLOR YELLOW; URINE GLUCOSE NEG (NEG); URINE KETONE NEG (NEG); URINE LEUKOCYTE ESTERASE NEG (NEG); URINE NITRATE NEG (NEG); URINE PROTEIN NEG (NEG); URINE SPECIFIC GRAVITY 1.012 (1.003-1.035); URINE UROBILINOGEN 0.2 MG/DL (NEG)
[2016-05-20 21:25] LABS: CULTURE INDICATED? NO
[2016-05-21 05:24] LABS: HEMATOCRIT 36.6 % (38.0-50.0); HEMOGLOBIN 11.6 gm/dL (13.0-16.0); MEAN CELL VOLUME 80.3 FL (83-96); MEAN CORPUSCULAR HEMOGLOBIN 25.5 PG (28-34); MEAN CORPUSCULAR HGB CONC 31.7 g/dL (30-36); MEAN PLATELET VOLUME 7.9 FL (6.5-11.5); RED BLOOD COUNT 4.56 X10e (3.90-5.60); RED CELL DISTRIBUTION WIDTH 17.9 % (11.0-15.5); WHITE BLOOD COUNT 6.9 X10e3 (4.0-10.5)
[2016-05-21 06:20] LABS: BUN/CREATININE RATIO 22.3; CREATININE SERUM 1.3 mg/dL (0.6-1.4); POTASSIUM 4.2 mmol/L (3.5-5.1)
[2016-05-22 04:36] LABS: POTASSIUM,URINE RANDOM 35 mmol/L; SODIUM URINE RANDOM 44 mmol/L
[2016-05-22 07:47] LABS: BASOPHIL% 0.8 % (0-2.5); EOSINOPHIL# 0.1 X10e3 (0-0.7); HEMATOCRIT 38.3 % (38.0-50.0); LYMPHOCYTE# 0.5 X10e3 (1.0-3.5); LYMPHOCYTE% 8.4 % (17.0-45.0); MEAN CELL VOLUME 81.4 FL (83-96); MEAN CORPUSCULAR HEMOGLOBIN 25.5 PG (28-34); MEAN CORPUSCULAR HGB CONC 31.3 g/dL (30-36); MEAN PLATELET VOLUME 8.1 FL (6.5-11.5); MONOCYTE# 0.9 X10e3 (0-1.0); MONOCYTE% 15.2 % (3.0-12.0); NEUTROPHIL# 4.3 X10e3 (1.5-7.1); NEUTROPHIL% 74.6 % (40-75); PLATELET COUNT 148 X10e3 (140-420); RED BLOOD COUNT 4.71 X10e (3.90-5.60); RED CELL DISTRIBUTION WIDTH 18.4 % (11.0-15.5); WHITE BLOOD COUNT 5.8 X10e3 (4.0-10.5)
[2016-05-22 07:54] LABS: DIFF IND NO
[2016-05-22 07:55] LABS: INR 1.3; PROTHROMBIN TIME (PATIENT) 13.8 SECONDS (9.6-11.5)
[2016-05-22 08:31] LABS: ALBUMIN SERUM 3.5 g/dL (3.5-5.0); BUN/CREATININE RATIO 21.42; CALCIUM SERUM 10.1 mg/dL (8.4-10.2); CREATININE SERUM 1.4 mg/dL (0.6-1.4); GLOM FILT RATE Estimated 51.4 mL/min (>60); POTASSIUM 4.3 mmol/L (3.5-5.1); PROTEIN TOTAL SERUM 6.6 g/dL (6.0-8.3)
[2016-05-22 08:42] LABS: PROCALCITONIN 0.15 NG/ML
[2016-05-22 15:02] LABS: BF TOTAL NUCLEATED CELL COUNT 339 CMM (0-100); BODY FLUID APPEARANCE CLOUDY; BODY FLUID RBC <10000 CMM; BODY FLUID SOURCE ASCITES
[2016-05-23 08:27] LABS: BUN/CREATININE RATIO 22.14; CREATININE SERUM 1.4 mg/dL (0.6-1.4); GLOM FILT RATE Estimated 51.4 mL/min (>60)
[2016-05-23] MEDS ORDERED: COREG3.125 MG PO (17:21)
[2016-05-23] MEDS ORDERED: ZESTRIL2.5 M1 PO (17:22)
[2016-05-23] MEDS ORDERED: KEFLEX500 MG PO (17:23)
[2016-05-25 07:49] LABS: HA AB IGM (HEPPAN) Nonreactive (Nonreactive); HB CORE AB IGM (HEPPAN) Nonreactive (Nonreactive); HB S AG (HEPPAN) Nonreactive (Nonreactive); HEP C AB (HEPPAN) Nonreactive (Nonreactive)
== END 2016-05-23 18:42 | disposition home health service (06) | DRG 432 ==
LOC: CED 19:38 → C5B 05-22 13:46
PROVIDERS: Hospitalist; Internal Medicine Gastroenterology; Internal Medicine Nephrology; Student in an Organized Health Care Education/Training Program
PROC: 0W9G3ZZ Drainage of Peritoneal Cavity, Percutaneous Approach (ICD-10-PCS; 2016-05-22)
PROC: 0FB03ZX Excision of Liver, Percutaneous Approach, Diagnostic (ICD-10-PCS; principal; 2016-05-22 20:41)
DX: K74.60 Unspecified cirrhosis of liver (principal); I50.23 Acute on chronic systolic (congestive) heart failure; R18.8 Other ascites; E11.22 Type 2 diabetes mellitus with diabetic chronic kidney disease; K76.6 Portal hypertension; I07.1 Rheumatic tricuspid insufficiency; I48.2 Chronic atrial fibrillation; N18.3 Chronic kidney disease, stage 3 (moderate); L03.311 Cellulitis of abdominal wall; I25.10 Atherosclerotic heart disease of native coronary artery without angina pectoris; Z95.1 Presence of aortocoronary bypass graft; I35.0 Nonrheumatic aortic (valve) stenosis; I12.9 Hypertensive chronic kidney disease with stage 1 through stage 4 chronic kidney disease, or unspecified chronic kidney disease; K22.70 Barrett's esophagus without dysplasia; N40.0 Benign prostatic hyperplasia without lower urinary tract symptoms; Z88.8 Allergy status to other drugs, medicaments and biological substances; Z88.0 Allergy status to penicillin; Z88.5 Allergy status to narcotic agent; Z87.891 Personal history of nicotine dependence
CPT/HCPCS: 36415; 71020; 74176; 76705; 77012; 78264; 80048; 80053; 80061; 80074; 80076; 81003; 82042; 82150; 82308; 82553; 82947; 83605; 83690; 83880; 84133; 84300; 84443; 84484; 85025; 85027; 85610; 85730; 86677; 88108; 88305; 88307; 88313; 89051; 89190; 93005; 96361; 96374; 96375; 99285; A9541; C1729; J0696; J1200; J2250; J2405; J2765; J3010

== ENCOUNTER → 2016-10-17 | Outpatient (CLI) | payer MEDICARE, BC ==
[~2016-10-17] MED LIST changes: +ZESTRIL2.5 M1 PO
--- NOTE | ~2016-10-17 | XA170 ---
[facility] A Service of [facility] & [facility] RADIOLOGY TEXT RESULTS PATIENT: ISIAH LOVETT LOCATION: [facility] : 32 UNIT #: [id number] AGE: [address]: Parvez Thomason MD SEX: M ORDER DR: [id number] [facility] [address] [place], [place] [address] [id number] O MR#: [id number] Acc #: [id number] NAME: ISIAH OLVETT : 1930 SEX: M STUDY DATE/TIME: 10/17/2016 10:10 UNIT: [facility] ROOM: STUDY DESCRIPTION: XA Paracentesis W Image Attending Physician: Parvez Thomason M.D. Referring Physician: Parvez Thomason M.D. Ordering Physician: Parvez Thomason M.D. Primary Care Physician: Kourtney Gary M.D. MEDICAL IMAGING REPORT This report is preliminary unless electronic signature is present EXAM Ultrasound guided paracentesis INDICATION Cirrhosis PROCEDURE There risks, benefits, and alternatives to the procedure were explained to the patient and signed, informed consent was obtained. He was placed supine on the stretcher. Preliminary ultrasound of the abdomen was performed which demonstrated a large volume of ascites. This image was permanently saved. Overlying skin was marked. Patient was prepped and draped in usual sterile fashion. Time-out was performed as per protocol. Skin and subcutaneous tissues were anesthetized with buffered lidocaine. Yueh catheter was advanced into fluid with aspiration of serous material. Of note, this collection does have a somewhat loculated appearance however this is stable when compared to the exam from April 2016. The catheter was hooked to suction tubing and there was evacuation of a total of 1,450 mL of serous material. Catheter was then removed and manual pressure was applied until hemostasis was obtained. IMPRESSION Technically successful ultrasound guided paracentesis with evacuation of 1,450 mL of serous material. Ultrasound was used during the procedure and permanent images were saved. Please note fluid does appear to be partially loculated. Similar findings were present in April of 2016. Dictated by... Karen Campbell M.D. THIS IS AN ELECTRONICALLY VERIFIED REPORT Karen Campbell M.D. at 10/19/2016 5:06 PM FELIX/lavell [facility] A Service of [facility] RADIOLOGY TEXT RESULTS PATIENT: ISIAH LOVETT LOCATION: [facility] : 32 UNIT #: [id number] AGE: [address]: Parvez Thomason MD SEX: M ORDER DR: TD: 10/19/2016 12:21 JOB #: [id number] MEDICAL IMAGING REPORT Page 1 of 1 COPY
[2016-10-17 09:44] LABS: HEMATOCRIT 38.3 % (38.0-50.0); HEMOGLOBIN 12.8 gm/dL (13.0-16.0); MEAN CELL VOLUME 81.3 FL (83-96); MEAN CORPUSCULAR HEMOGLOBIN 27.1 PG (28-34); MEAN CORPUSCULAR HGB CONC 33.3 g/dL (30-36); MEAN PLATELET VOLUME 7.6 FL (6.5-11.5); RED BLOOD COUNT 4.71 X10e (3.90-5.60); WHITE BLOOD COUNT 2.9 X10e3 (4.0-10.5)
[2016-10-17 10:11] LABS: ALBUMIN SERUM 3.9 g/dL (3.5-5.0); BILIRUBIN,TOTAL 2.2 mg/dL (0.2-2.0); BUN/CREATININE RATIO 17.33; CALCIUM SERUM 10.3 mg/dL (8.4-10.2); CREATININE SERUM 1.5 mg/dL (0.6-1.4); GLOM FILT RATE Estimated 42.2 mL/min (>60); POTASSIUM 3.6 mmol/L (3.5-5.1); PROTEIN TOTAL SERUM 7.2 g/dL (6.0-8.3)
[2016-10-17 10:24] LABS: INR 1.2; PARTIAL THROMBOPLASTIN TIME 29.1 SECONDS (23.5-31.3); PROTHROMBIN TIME (PATIENT) 13.1 SECONDS (10.0-11.7)
== END | disposition home or self-care (01) ==
LOC: CIVR 08:25
PROVIDERS: Internal Medicine Gastroenterology
DX: K74.60 Unspecified cirrhosis of liver (principal); R18.8 Other ascites
CPT/HCPCS: 36415; 80053; 85027; 85610; 85730

== ENCOUNTER → 2016-10-25 | Outpatient (CLI) | payer MEDICARE, BC ==
[2016-10-25 15:36] LABS: URINE APPEARANCE CLEAR; URINE BILIRUBIN NEG (NEG); URINE BLOOD NEG (NEG); URINE COLOR YELLOW; URINE GLUCOSE NORM (NORM); URINE KETONE NEG (NEG); URINE LEUKOCYTE ESTERASE NEG (NEG); URINE NITRATE NEG (NEG); URINE PROTEIN NEG (NEG); URINE SOURCE CLEAN CATCH; URINE SPECIFIC GRAVITY 1.015 (1.003-1.035); URINE UROBILINOGEN NORM (NORM)
== END | disposition home or self-care (01) ==
LOC: CLAB 15:14
PROVIDERS: Nurse Practitioner
DX: R10.13 Epigastric pain (principal)
CPT/HCPCS: 81003